=== PATIENT | male | born 1960 | race Caucasian/White ===

== ENCOUNTER 2018-10-28 13:09 | Emergency (ER) | payer SELFPAY ==
[~2018-10-28] VITALS: Ht 172.7 cm; Wt 74.8 kg
--- OUTSIDE RECORDS SUMMARY | 2018-10-28 13:11 | XMS REPORT ---
Author [facility] Address Unknown Phone Unavailable Care Team Providers Care Linoleum Tile Layer Name Role Phone Unavailable Unavailable Payers Payer Name Policy Type Policy Number Effective Date Expiration Date Problems This patient has no known problems. Allergies, Adverse Reactions, Alerts Allergy Name Allergy Type Status Severity Reaction(s) Onset Date Inactive Date Treating Clinician Comments No Known Allergies DA Active U 2014-10-15 00:00:00 Medications This patient has no known medications. Encounters Start Date/Time End Date/Time Encounter Type Admission Type Attending Clinicians Care Facility Care Department Encounter ID 2017-06-13 00:00:00 2018-01-04 00:00:00 Outpatient [facility] [id number] 2017-09-22 02:36:01 2017-09-22 02:36:01 Outpatient [facility] [id number]
--- NOTE | 2018-10-28 13:54 | NUR ---
Pt sitting up in bed comfortably. RR even and unlabored. NAD noted. Vitals stable. Pt remains with HOB elevated. Seizure precautions in place. Call light in reach. Door left open for direct visualization of pt. Bed rails up x2. Spouse at bedside. Will continue to monitor.
[2018-10-28 14:04] LABS: BASOPHILS % 0.3 % (0.0-1.0); HEMATOCRIT 43.3 % (38.2-49.6); HEMOGLOBIN 14.8 g/dL (14.0-18.0); LYMPHOCYTES # (AUTO) 1.2 (1.0-3.2); MEAN CORPUSCULAR HEMOGLOBIN 33.6 pg (28-32); MEAN CORPUSCULAR HGB CONC 34.2 g/dL (31-35); MEAN CORPUSCULAR VOLUME 98.2 fL (81-99); MONOCYTES # (AUTO) 0.5 (0.2-0.8); NEUTROPHILS # (AUTO) 11.6 (2.1-6.9); NEUTROPHILS % 86.4 % (38.7-80.0); PLATELET COUNT 249 x10e3/uL (140-360); RED BLOOD COUNT 4.41 x10e6/uL (4.3-5.7)
[2018-10-28] MEDS ORDERED: LORAZEPAM INJ 2 MG/ML VIAL ONE (14:15)
[2018-10-28] MEDS ORDERED: LORAZEPAM INJ 2 MG/ML VIAL IV ONE (14:25)
--- NOTE | 2018-10-28 14:25 | NUR ---
Pt had a seizure that lasted approx 1 min. Pt was postical and attempting to get off the ED stretcher. Pt redirected back in bed. Dr. Truong at bedside examining pt. Pt on O2. Verbal order with readback for Ativan 1mg IVP STAT. Seizure precautions remain in place.
[2018-10-28 14:26] LABS: ALANINE AMINOTRANSFERASE 16 IU/L (0-55); ALBUMIN 4.3 g/dL (3.5-5.0); ALBUMIN/GLOBULIN RATIO 1.4 (0.8-2.0); ALKALINE PHOSPHATASE 60 IU/L (40-150); BLOOD UREA NITROGEN 9 mg/dL (7-26); BUN/CREATININE RATIO 11 (6-25); CALCIUM 9.3 mg/dL (8.4-10.2); CARBON DIOXIDE 24 mmol/L (22-29); CHLORIDE 101 mmol/L (98-107); CREATINE KINASE 133 IU/L (30-200); CREATININE, SERUM 0.85 mg/dL (0.72-1.25); EST GLOMERULAR FILTRATION RATE > 60 ML/MIN (60-); GLUCOSE 115 mg/dL (74-118); SODIUM 135 mmol/L (136-145)
[2018-10-28 14:38] LABS: PHENYTOIN (DILANTIN) < 0.50 ug/mL (10-20)
[2018-10-28 14:39] LABS: CLARITY,URINE CLEAR (CLEAR); COLOR,URINE YELLOW (YELLOW); KETONES,URINE 1+ (NEGATIVE); LEUKOCYTE ESTERASE ,URINE NEGATIVE (NEGATIVE); NITRITE,URINE NEGATIVE (NEGATIVE); PROTEIN,URINE DIPSTICK NEGATIVE (NEGATIVE)
[2018-10-28 14:40] LABS: AMPHETAMINES SCREEN,URINE NEGATIVE (NEGATIVE); BENZODIAZEPINES SCREEN,URINE NEGATIVE (NEGATIVE); BILIRUBIN,URINE NEGATIVE (NEGATIVE); PHENCYCLIDINE SCREEN,URINE NEGATIVE (NEGATIVE); URINE UROBILINOGEN 0.2 mg/dL (0.2 - 1)
[2018-10-28 14:53] LABS: BACTERIA,URINE RARE /HPF
--- NOTE | 2018-10-28 14:58 | Diagnostic Imaging Report ---
EXAMINATION: Head CT HISTORY: Seizures COMPARISON: None. TECHNIQUE: Multidetector axial images were obtained without contrast from the foramen magnum to the vertex . The images were reconstructed using brain and bone algorithms. Thin section brain images were reformatted into coronal and sagittal planes. Image quality: Motion/streaking artifact limits the evaluation of the skull base and posterior cranial fossa. Dose modulation, iterative reconstruction, and/or weight based adjustment of the mA/kV was utilized to reduce the radiation dose to as low as reasonably achievable. FINDINGS: Parenchyma: 1. No abnormal densities. 2. No mass or hemorrhage. No CT evidence of acute territorial vascular insult. Extra-axial spaces:No abnormal density. No extra-axial fluid collections Brain volume: Normal for age. Ventricles: No hydrocephalus or displacement. Arteries: No density suggestive of thrombus. Dural sinuses: No abnormal density. Extra-axial spaces: No abnormal density. Foramen magnum: No mass, Chiari malformation, or basilar invagination. Sella: No obvious mass. Paranasal/mastoid sinuses: Imaged portions unremarkable. Skull/Scalp: No lytic or blastic lesions. No fractures. IMPRESSION: No intracranial abnormalities. Signed by: Dr. Che Prather M.D. on 10/28/2018 2:55 PM
[2018-10-28] MEDS ORDERED: FOSPHENYTOIN 50 MG/ML VIAL IV STA (15:31)
[2018-10-28] MEDS ORDERED: FOSPHENYTOIN 1,000 MG in SODIUM CHLORIDE 0.9% 250ML 250 ML IV SCH (15:45)
== END 2018-10-28 17:43 | disposition home or self-care (01) ==
LOC: ER 13:09
DX: G40.409 Other generalized epilepsy and epileptic syndromes, not intractable, without status epilepticus (principal)
CPT/HCPCS: 36415; 70450; 80053; 80185; 80307; 81001; 82542; 82550; 82553; 84484; 85025; 93005; 99284; J2060; J7050; Q2009